=== PATIENT | female | born 1980 | race Caucasian/White ===

== ENCOUNTER 2017-04-15 12:14 | Emergency (ER) | payer MEDICAID, OTHER ==
[2017-04-15 12:20] VITALS: BP 129/79; PULSE 92; RESP 17; TEMP 98.4; O2SAT 98
--- NOTE | 2017-04-15 12:46 | EDPHY ---
H & P Time Seen by Provider: 04/15/17 12:27 HPI/ROS: Chief complaint: Sinus infection History of present illness: This is a 37-year-old female who presents to the emergency department with what she believes is a sinus infection. Patient has a history of allergies and asthma. She has had an exacerbation of her allergies over the last 3 weeks. She has been taking her allergy medications at home which include Zyrtec. Since the onset of her symptoms she has also been taking Benadryl as well as using [place] pot washes and a nasal steroid but symptoms are worsening. She describes a pressure in her face. Sore throat. She has a slight cough. No report of fevers, no report of chest congestion or trouble breathing, no rash. She has had multiple sinus infections in the past and when it gets this bad she usually is treated with a Z-Madi and symptoms will resolve. Review of systems: A 10 point review of systems was obtained and other than described above was negative Smoking Status: Never smoked Physical Exam: General Appearance: Alert and no distress. Eyes: Pupils equal and round no injection. ENT: Tympanic membranes, external auditory canals, external ears and surrounding soft tissue including over the mastoids are unremarkable. Nasopharynx is injected. There is green to yellow rhinorrhea. Oropharynx is injected. There is no edema. There is no exudate. There is no asymmetry. The uvula is midline. No elevation of the tongue. There is no hoarseness, no drooling, no trismus, no stridor. Respiratory: Chest is non tender, lungs are clear to auscultation. Cardiac: regular rate and rhythm Musculoskeletal: Neck is supple and non tender. Extremities have full range of motion and are non tender. Skin: No rashes or lesions. Neurological: Alert and oriented x4. No meningismus. Constitutional: Initial Vital Signs Temperature (C) 36.9 C 04/15/17 12:17 Heart Rate 92 04/15/17 12:17 Respiratory Rate 17 04/15/17 12:17 Blood Pressure 129/79 H 04/15/17 12:17 O2 Sat (%) 98 04/15/17 12:17 O2 Delivery Mode Room Air Allergies/Adverse Reactions: ibuprofen Allergy (Verified 04/15/17 12:17) Penicillins Allergy (Verified 04/15/17 12:17) Sulfa (Sulfonamide Antibiotics) Allergy (Verified 04/15/17 12:16) Home Medications: Medication Instructions Recorded AZITHROMYCIN [Z-PACK] 250 mg PO DAILY #6 tab 04/15/17 ZYRTEC 04/15/17 MDM/Departure - [facility] ED Course/Re-evaluation: Patient seen under the supervision of my primary supervising physician Dr. Soni Vera. Patient presents to the emergency department for what she believes is sinusitis. I do believe history and physical exam is consistent with an acute sinusitis. She is nontoxic. She has failed conservative therapy. I will start her on a Z-Madi. Home care is discussed. She is to follow up with her primary care doctor for recheck. Return precautions are given. Patient voiced understanding and agreement plan. Differential Diagnosis: Included but not limited to sinusitis, allergic rhinitis, pharyngitis - Depart Disposition: Home, Routine, Self-Care Clinical Impression: Sinusitis Qualifiers: Sinusitis location: unspecified location Chronicity: acute Recurrence: non- recurrent Qualified Code(s): J01.90 - Acute sinusitis, unspecified Condition: Good Instructions: Sinusitis (ED) Additional Instructions: Follow-up with your primary care doctor for recheck this week If symptoms worsen or new symptoms develop return to the emergency room for recheck Prescriptions: AZITHROMYCIN [Z-PACK] 250 mg PO DAILY #6 tab Referrals: CRISTIAN HESS [Other] - As per Instructions
== END 2017-04-15 13:03 | disposition home or self-care (01) ==
DX: J01.90 Acute sinusitis, unspecified (principal)